=== PATIENT | female | born 1975 | race Caucasian/White ===

== ENCOUNTER 2022-10-21 15:23 | Emergency (ER) | payer OTHER ==
[~2022-10-21] VITALS: Ht 172.7 cm; Wt 83.9 kg
[2022-10-21 15:24] VITALS: BP 131/83
[2022-10-21 16:09] LABS: BASOPHILS # (AUTO) 0.1 K/uL (0.00-0.22); BASOPHILS % (AUTO) 1.2 % (0.0-2.0); EOSINOPHILS # (AUTO) 0.1 K/uL (0-0.4); EOSINOPHILS % (AUTO) 1.7 % (0.0-4.0); HEMATOCRIT 44.2 % (36-48); HEMOGLOBIN 14.5 g/dL (12.0-16.0); LYMPHOCYTES # (AUTO) 1.7 K/uL (2.5-16.5); LYMPHOCYTES % (AUTO) 32.5 % (20.5-51.1); MEAN CORPUSCULAR HEMOGLOBIN 28 pg (27-31); MEAN CORPUSCULAR HGB CONC 33 g/dL (33-37); MEAN CORPUSCULAR VOLUME 83.8 fL (80-94); MONOCYTES # (AUTO) 0.3 K/uL (0.8-1.0); MONOCYTES % (AUTO) 4.9 % (1.7-9.3); NEUTROPHILS # (AUTO) 3.2 K/uL (1.8-7.7); NEUTROPHILS % (AUTO) 59.7 % (42.2-75.2); PLATELET COUNT (AUTO) 190 K/uL (140-450); RED BLOOD CELL COUNT(AUTO) 5.28 MIL/uL (4.20-5.40); RED CELL DISTRIBUTION WIDTH 13.7 % (11.6-13.7); WHITE BLOOD COUNT (AUTO) 5.3 K/uL (4.8-10.8)
--- NOTE | 2022-10-21 16:20 | NUR ---
Patient ambulated to bed 12 with steady/even gait.
--- NOTE | 2022-10-21 16:25 | NUR ---
46 y/o F BIB self from home c/o weakness and low blood sugar readings at home. Patient A&Ox4, ambulatory with cane, states has stopped taking prescribed metformin since gastric bypass surgery. Patient reports symptoms recurring for past 3 months with blood glucose readings in 40-50 range. Patient reports dizziness with ambulating and weakness. Patient denies fever, chills, urinary symptoms, n/v/d, blurry vision. Bed locked in lowest position, side rails x 1. PMH: DM, HTN, HLD, neuropathy, GERD Meds: gabapentin, atorvastatin, famotidine, enalapril, baclofen, [place] 10/325, nortiptyline, sucralfate, calcium, multivitamin, probiotics Sx: gastric sleeve 2018, hernia repair, back sx NKDA
[2022-10-21 16:34] LABS: ALBUMIN 3.8 g/dL (3.4-5.0); CARBON DIOXIDE 28.9 mmol/L (21-32); CREATININE 0.9 mg/dL (0.6-1.3); POTASSIUM 3.9 mmol/L (3.5-5.1); THYROID STIMULATING HORMONE 0.62 uIU/mL (0.34-3.74); TOTAL BILIRUBIN 0.6 mg/dL (0.0-1.0)
--- NOTE | 2022-10-21 17:15 | NUR ---
Patient c/o nausea at this time. Dr. Gates notified
--- NOTE | 2022-10-21 17:16 | NUR ---
Josette schulz collected, walked to lab to [facility]. Log book complete
--- NOTE | 2022-10-21 17:19 | NUR ---
Verbal order received from Dr. Gates for Zofran 4mg ODT.
[2022-10-21] MEDS ORDERED: ONDANSETRON 4 MG ODT PO ONE (17:25)
--- NOTE | 2022-10-21 17:53 | NUR ---
PROVIDED PATIENT WITH JUICE
--- NOTE | 2022-10-21 18:15 | NUR ---
Patient states + relief to nausea.
[2022-10-21] MEDS ORDERED: ACETAMINOPHEN EXTRA STRENGTH 500 MG TAB PO ONE (20:05)
[2022-10-21 20:31] VITALS: BP 132/80
--- NOTE | 2022-10-21 20:31 | NUR ---
Patient discharged with v/s stable. Written and verbal after care instructions given and explained. Patient verbalized understanding. Ambulatory with steady gait. All questions addressed prior to discharge. Advised to follow up with PMD.
== END 2022-10-21 20:31 | disposition home or self-care (01) ==
LOC: MED 15:23
DX: R42 Dizziness and giddiness (principal); Z20.822 Contact with and (suspected) exposure to COVID-19; I10 Essential (primary) hypertension; Z98.890 Other specified postprocedural states
CPT/HCPCS: 36415; 80053; 84443; 85025; 87426; 99283; Q0162

== ENCOUNTER 2023-04-19 12:10 | Emergency (ER) | payer OTHER ==
[~2023-04-19] VITALS: Ht 157.5 cm; Wt 93.0 kg
[2023-04-19 12:22] VITALS: BP 149/93; PULSE 90; RESP 20; TEMP 98.1; O2SAT 100
[2023-04-19] MEDS ORDERED: KETOROLAC 30 MG/ML VIAL IM ONE (12:50)
[2023-04-19] MEDS ORDERED: BUPIVACAINE-MPF 0.5% 30 ML VIAL INJ ONE (12:50)
[2023-04-19] MEDS ORDERED: KETO10TA2 PO (13:19)
[2023-04-19] MEDS ORDERED: AMOX1TAB8 PO (13:19)
== END 2023-04-19 13:27 | disposition home or self-care (01) ==
LOC: MED 12:10
DX: K08.89 Other specified disorders of teeth and supporting structures (principal); K21.9 Gastro-esophageal reflux disease without esophagitis; I10 Essential (primary) hypertension; E11.9 Type 2 diabetes mellitus without complications; Z79.4 Long term (current) use of insulin; Z79.899 Other long term (current) drug therapy
CPT/HCPCS: 81025; 96372; 99283; J1885

== ENCOUNTER 2023-09-02 16:27 | Emergency (ER) | payer OTHER ==
[~2023-09-02] VITALS: Ht 167.6 cm; Wt 81.6 kg
[~2023-09-02 16:27] MED LIST: AMOX1TAB8 PO; KETO10TA2 PO
[2023-09-02 16:41] VITALS: BP 124/84; PULSE 107; RESP 20; TEMP 98; O2SAT 98
[2023-09-02] MEDS ORDERED: KETOROLAC 30 MG/ML VIAL IM ONE (17:30)
[2023-09-02 17:59] LABS: BASOPHILS # (AUTO) 0.1 K/uL (0.00-0.22); BASOPHILS % (AUTO) 1.5 % (0.0-2.0); EOSINOPHILS # (AUTO) 0.1 K/uL (0-0.4); EOSINOPHILS % (AUTO) 1.2 % (0.0-4.0); HEMATOCRIT 43.4 % (36-48); HEMOGLOBIN 14.6 g/dL (12.0-16.0); LYMPHOCYTES # (AUTO) 1.9 K/uL (2.5-16.5); LYMPHOCYTES % (AUTO) 29.4 % (20.5-51.1); MEAN CORPUSCULAR HEMOGLOBIN 29 pg (27-31); MEAN CORPUSCULAR HGB CONC 34 g/dL (33-37); MEAN CORPUSCULAR VOLUME 86.1 fL (80-94); MONOCYTES # (AUTO) 0.4 K/uL (0.8-1.0); MONOCYTES % (AUTO) 6.8 % (1.7-9.3); NEUTROPHILS % (AUTO) 61.1 % (42.2-75.2); PLATELET COUNT (AUTO) 216 K/uL (140-450); RED BLOOD CELL COUNT(AUTO) 5.04 MIL/uL (4.20-5.40); RED CELL DISTRIBUTION WIDTH 13.3 % (11.6-13.7); WHITE BLOOD COUNT (AUTO) 6.5 K/uL (4.8-10.8)
[2023-09-02 18:18] LABS: ANION GAP 13.2 (8-16); CALCIUM 9.2 mg/dL (8.5-10.1); CARBON DIOXIDE 29.3 mmol/L (21-32); CREATININE 0.9 mg/dL (0.6-1.3); POTASSIUM 3.5 mmol/L (3.5-5.1)
[2023-09-02 18:24] LABS: ALBUMIN 3.5 g/dL (3.4-5.0)
[2023-09-02 18:49] LABS: ALANINE AMINOTRANSFERASE 91 U/L (12-78); ALKALINE PHOSPHATASE 165 U/L (50-136); ASPARTATE AMINOTRANSFERASE 33 U/L (15-37); BILIRUBIN,DIRECT 0.2 mg/dL (0.0-0.3); TOTAL BILIRUBIN 0.5 mg/dL (0.0-1.0); TOTAL PROTEIN, SERUM 7.9 g/dL (6.4-8.2)
[2023-09-02] MEDS ORDERED: LID5T TP (19:02)
[2023-09-02] MEDS ORDERED: AMOX1TAB8 PO (19:02)
[2023-09-02] MEDS ORDERED: AZIT250T4 PO (19:02)
== END 2023-09-02 19:19 | disposition home or self-care (01) ==
LOC: MED 16:27
DX: J18.9 Pneumonia, unspecified organism (principal); K21.9 Gastro-esophageal reflux disease without esophagitis; I10 Essential (primary) hypertension; E11.9 Type 2 diabetes mellitus without complications; Z79.4 Long term (current) use of insulin; Z79.899 Other long term (current) drug therapy
CPT/HCPCS: 36415; 71045; 80048; 80076; 81025; 83880; 84484; 85025; 85379; 93005; 96372; 99285; J1885

== ENCOUNTER 2023-10-28 06:10 | Emergency (ER) | payer OTHER ==
[~2023-10-28] VITALS: Ht 157.5 cm; Wt 93.9 kg
[~2023-10-28 06:10] MED LIST changes: +AZIT250T4 PO; +LID5T TP
[2023-10-28 06:15] VITALS: BP 122/80; PULSE 106; RESP 20; TEMP 99.5; O2SAT 96
[2023-10-28] MEDS: ACETAMINOPHEN EXTRA STRENGTH 500 MG TAB PO ONE (06:57)
[2023-10-28] MEDS: NACL 0.9% 1,000 ML IV ONE ×2 (06:57→08:00)
[2023-10-28] MEDS: KETOROLAC 30 MG/ML VIAL IVP ONE (06:57)
[2023-10-28 07:11] LABS: BASOPHILS % (AUTO) 0.7 % (0.0-2.0); EOSINOPHILS % (AUTO) 0.6 % (0.0-4.0); HEMATOCRIT 39.6 % (36-48); HEMOGLOBIN 13.5 g/dL (12.0-16.0); LYMPHOCYTES # (AUTO) 1.1 K/uL (2.5-16.5); LYMPHOCYTES % (AUTO) 24.1 % (20.5-51.1); MEAN CORPUSCULAR HEMOGLOBIN 29 pg (27-31); MEAN CORPUSCULAR HGB CONC 34 g/dL (33-37); MEAN CORPUSCULAR VOLUME 84.4 fL (80-94); MONOCYTES # (AUTO) 0.5 K/uL (0.8-1.0); MONOCYTES % (AUTO) 10.1 % (1.7-9.3); NEUTROPHILS # (AUTO) 3.1 K/uL (1.8-7.7); NEUTROPHILS % (AUTO) 64.5 % (42.2-75.2); PLATELET COUNT (AUTO) 160 K/uL (140-450); WHITE BLOOD COUNT (AUTO) 4.8 K/uL (4.8-10.8)
[2023-10-28 07:40] LABS: ALBUMIN 3.1 g/dL (3.4-5.0); ANION GAP 16.1 (8-16); CALCIUM 8.6 mg/dL (8.5-10.1); CARBON DIOXIDE 24.6 mmol/L (21-32); CREATININE 0.7 mg/dL (0.6-1.3); POTASSIUM 3.7 mmol/L (3.5-5.1); TOTAL BILIRUBIN 0.5 mg/dL (0.0-1.0); TOTAL PROTEIN, SERUM 6.4 g/dL (6.4-8.2)
[2023-10-28 07:41] LABS: LIPASE 16 U/L (16-77)
[2023-10-28] MEDS ORDERED: cefTRIAXone 1,000 MG VIAL ONE (07:55)
[2023-10-28] MEDS: MORPHINE SULFATE 4 MG/ML SYR IVP ONE (09:13)
[2023-10-28] MEDS: ONDANSETRON 4 MG/2 ML VIAL IVP ONE (09:13)
[2023-10-28 09:14] LABS: FLU A ANTIGEN negative (NEGATIVE); FLU B ANTIGEN NEGATIVE (NEGATIVE)
[2023-10-28 10:05] VITALS: TEMP 99.1
[2023-10-28] MEDS ORDERED: LEVO750T75 PO (10:14)
[2023-10-28] MEDS ORDERED: NIRM1TAB9 PO (10:14)
[2023-10-28] MEDS ORDERED: ACET-10509 PO (10:14)
[2023-10-28 10:19] LABS: APPEARANCE,URINE SL CLOUDY (CLEAR); BILIRUBIN,URINE NEGATIVE (NEGATIVE); BLOOD, URINE NEGATIVE (NEGATIVE); COLOR,URINE YELLOW (YELLOW); LEUKOCYTE ESTERASE ,URINE NEGATIVE (NEGATIVE); NITRITE, URINE NEGATIVE (NEGATIVE); PROTEIN,URINE NEGATIVE (NEGATIVE); UGLUCOSE NEGATIVE (NEGATIVE)
[2023-10-28] MEDS ORDERED: GUAI237L61 PO (10:23)
[2023-10-28 10:41] VITALS: BP 116/80; PULSE 65; RESP 18; O2SAT 96
== END 2023-10-28 10:41 | disposition home or self-care (01) ==
LOC: MED 06:10
DX: U07.1 COVID-19 (principal); J12.82 Pneumonia due to coronavirus disease 2019; E46 Unspecified protein-calorie malnutrition; E88.09 Other disorders of plasma-protein metabolism, not elsewhere classified; K57.30 Diverticulosis of large intestine without perforation or abscess without bleeding; K46.9 Unspecified abdominal hernia without obstruction or gangrene; E11.9 Type 2 diabetes mellitus without complications; K21.9 Gastro-esophageal reflux disease without esophagitis; I10 Essential (primary) hypertension; Z79.899 Other long term (current) drug therapy
CPT/HCPCS: 36415; 71045; 74176; 80053; 81003; 81025; 83605; 83690; 83880; 84484; 85025; 85379; 87040; 87086; 87426; 87804; 96361; 96365; 96375; 99285; J0696; J1885; J2270; J2405; J7030